=== PATIENT | female | born 1965 | race Caucasian/White ===

== ENCOUNTER 2016-08-29 12:09 | Emergency (ER) | payer BC, OTHER ==
[~2016-08-29] VITALS: Ht 165.1 cm; Wt 80.6 kg
[2016-08-29 12:14] VITALS: BP 163/92
[2016-08-29] MEDS ORDERED: DIAZEPAM 5 MG TABLET PO ONE (13:00)
[2016-08-29] MEDS ORDERED: DIAZEPAM 5 MG TABLET ONE (13:10)
== END 2016-08-29 13:25 | disposition home or self-care (01) ==
LOC: ED 13:05
DX: H81.11 Benign paroxysmal vertigo, right ear (principal); H69.91 Unspecified Eustachian tube disorder, right ear
CPT/HCPCS: 99283

== ENCOUNTER 2018-10-30 09:47 | Outpatient (CLI) | payer BC ==
[2018-10-30] MEDS ORDERED: ZOLP12.52 PO (10:19)
[2018-10-30] MEDS ORDERED: ROSU20TA2 PO (10:19)
[2018-10-30] MEDS ORDERED: LEVO50TA PO (10:19)
[2018-10-30] MEDS ORDERED: ALPR0.5T7 PO (10:19)
[2018-10-30] MEDS ORDERED: TELM80TA PO (10:19)
[2018-10-30] MEDS ORDERED: ATEN100T PO (10:19)
[2018-10-30] MEDS ORDERED: FENO145T30 PO (10:19)
[2018-10-30 11:04] LABS: BASOPHILS # (AUTO) 0.04 x10^3/uL (0-0.1); BASOPHILS % (AUTO) 1 % (0-1); EOSINOPHILS # (AUTO) 0.09 x10^3/uL (0-0.4); EOSINOPHILS % (AUTO) 1 % (1-7); LYMPHOCYTES # (AUTO) 3.32 x10^3/uL (1-3.4); LYMPHOCYTES % (AUTO) 46 % (22-44); MD NO; MEAN CORPUSCULAR HEMOGLOBIN 33.6 pg (27.0-34.8); MEAN CORPUSCULAR HGB CONC 33.8 g/dL (32.4-35.8); MEAN CORPUSCULAR VOLUME 99.4 fL (80-100); MEAN PLATELET VOLUME 8.1 fL (7.4-10.4); MONOCYTES # (AUTO) 0.69 x10^3/uL (0.2-0.8); MONOCYTES % (AUTO) 10 % (2-9); NEUTROPHILS # (AUTO) 3.12 x10^3/uL (1.8-6.8); NEUTROPHILS % (AUTO) 43 % (42-75); PLATELET COUNT 371 x10^3/uL (130-400); RED BLOOD COUNT 4.43 x10^6/uL (3.82-5.3); RED CELL DISTRIBUTION WIDTH 12.5 % (9.6-15.2)
[2018-10-30 11:13] LABS: MICROSCOPIC NOT IND
[2018-10-30 11:17] LABS: CULTURE INDICATED? NO
[2018-10-30 13:09] LABS: CHLORIDE 109 mmol/L (98-107)
[2018-10-30 13:22] LABS: ALANINE AMINOTRANSFERASE 47 U/L (12-78); ALBUMIN 4.1 g/dL (3.4-5.0); ALKALINE PHOSPHATASE 35 U/L (45-117); ANION GAP 8 mmol/L (5-15); BILIRUBIN,TOTAL 0.3 mg/dL (0.2-1.0); CALCIUM 9.2 mg/dL (8.5-10.1); CREATININE 0.94 mg/dL (0.55-1.02); TOTAL PROTEIN 7.8 g/dL (6.4-8.2)
== END 2018-10-30 23:59 | disposition home or self-care (01) ==
LOC: STAR 09:47
PROVIDERS: ATTEND Obstetrics & Gynecology
DX: Z01.818 Encounter for other preprocedural examination (principal); N92.0 Excessive and frequent menstruation with regular cycle; N94.6 Dysmenorrhea, unspecified
CPT/HCPCS: 36415; 80053; 81003; 85025; 93005

== ENCOUNTER 2018-11-08 10:03 | Day surgery (SDC) | payer BC ==
[~2018-11-08] VITALS: Ht 166.4 cm; Wt 83.6 kg
[2018-11-08 10:36] VITALS: BP 117/72
== END 2018-11-08 16:00 | disposition home or self-care (01) ==
LOC: OUT 10:03
PROVIDERS: ATTEND Obstetrics & Gynecology
DX: N80.0 Endometriosis of uterus (principal); I10 Essential (primary) hypertension; E78.5 Hyperlipidemia, unspecified; E03.9 Hypothyroidism, unspecified; Z79.890 Hormone replacement therapy; Z79.899 Other long term (current) drug therapy; Z88.1 Allergy status to other antibiotic agents; Z88.8 Allergy status to other drugs, medicaments and biological substances; Z83.3 Family history of diabetes mellitus; Z80.3 Family history of malignant neoplasm of breast; Z82.49 Family history of ischemic heart disease and other diseases of the circulatory system
CPT/HCPCS: 36415; 58262; 81025; 86850; 86900; 88307; J0171; J0690; J1100; J1170; J1885; J2250; J2370; J2405; J2704; J2710; J3010; J3490; J7120

== ENCOUNTER 2019-06-12 06:16 | Emergency (ER) | payer BC, OTHER ==
[~2019-06-12] VITALS: Ht 165.1 cm; Wt 82.1 kg
[~2019-06-12 06:16] MED LIST: ALPR0.5T7 PO; ATEN100T PO; FENO145T19 PO; LEVO50TA PO; ROSU20TA2 PO; TELM80TA PO; ZOLP12.52 PO
[2019-06-12 06:18] VITALS: BP 133/86
--- NOTE | 2019-06-12 07:02 | NUR ---
PT CONTINUES TO AWAIT ROOM ASSIGNMENT. PA EXAMINING HER IN TRIAGE
[2019-06-12] MEDS ORDERED: PROPARACAINE OPHTH 0.5%, 15ML ONE (07:04)
--- NOTE | 2019-06-12 07:27 | NUR ---
PAINTER SET: PT TO ROOM FROM LOBBY
--- NOTE | 2019-06-12 07:27 | NUR ---
PT STATES GOING TO PRIMARY MD NOW
== END 2019-06-12 07:29 | disposition left against medical advice (07) ==
LOC: ED 07:18
DX: H57.12 Ocular pain, left eye (principal)
CPT/HCPCS: 99282